=== PATIENT | female | born 1985 | race Caucasian/White ===

== ENCOUNTER → 2023-11-29 | Outpatient (CLI) | payer BC, SELFPAY ==
--- OUTSIDE RECORDS SUMMARY | 2023-11-29 17:45 | XMS RPT_ITS | CCD ---
Author Name Unknown Address [address] [place] [address] Organization [facility] Care Team Providers Care Collar Stitcher Name Role Phone YINA WRIGHT, DR HUBERT Radford Primary Care Physician [phone] YINA WRIGHT, DR HUBERT Radford Attending Amy Valles MD, DR HUBERT Radford Primary Care Unavailab Finn WRIGHT, DR BROOK EDUARDO Attending Unaerin BRAN MD, DR HUBERT Radford Primary Care Unavailab Finn WRIGHT, DR BROOK EDUARDO Attending Paige BRAN MD, DR HUBERT Radford Primary Care Unavailab Finn WRIGHT, DR BROOK EDUARDO Attending Unaerin BRAN MD, DR HUBERT Radford Primary Care Unavailab Hai WRIGHT, DR HUBERT Radford Attending Amy aVlles MD, DR HUBERT Radford Primary Care Unavailab Hai WRIGHT, DR HUBERT Radford Attending Altagraciaab velma BRAN MD, DR HUBERT Radford Primary Care Unavailab Finn WRIGHT, DR BROOK EDUARDO Attending Unaerin BRAN MD, DR HUBERT Radfodr Primary Care Unavailab Finn WRIGHT, DR BROOK EDUARDO Attending Unaerin BRAN MD, DR HUBERT Radford Primary Care Unavailab Kahlil WRIGHT, KANA PHAM MD, PRISCILLA Garcia Consulting Sarahi ENGLISH MD, DR BROOK EDUARDO Attending Paige BRAN MD, DR HUBERT Radford Primary Care Unavailab Finn WRIGHT, DR BROOK EDUARDO Attending Unaerin BRAN MD, DR HUBERT Radford Primary Care Unavailab Hai WRIGHT, DR HUBERT Radford Attending Amy Valles MD, DR HUBERT Radford Primary Care Unavailab Hai WRIGHT, DR HUBERT Radford Attending Unavailab velma BRAN MD, DR HUBERT Radford Primary Care Unavailab le Medications Current Medications Medication Drug Class(es) Dates Sig (Normalized) Sig (Original) acetaminophen 325 mg / HYDROcodone bitartrate 5 mg oral tablet (4 sources) [facility]io[facility] Agonist Start: 04-25-2023 End: 04-28-2023 take 1 tablet by mouth every four hours as needed for pain Livermore 325- 5 mg oral tablet Dose = 1 tab(s), Oral, q4h, PRN for pain, X 3 day(s), # 20 tab(s), 0 Refill(s), Pharmacy: [facility], Acute post-operative pain, 162.6, cm, 04/25/23 6:36:00 EDT, Height, 109.1 Start Date: 04/25/23 Stop Date: 04/28/23 Status: Ordered Completed/Discontinued Medications Medication Drug Class(es) Dates Sig (Normalized) Sig (Original) ALPRAZolam 0.5 mg oral tablet (4 sources) Benzodiazepine Start: 06-18-2019 End: 07-18-2019 Xanax 0.5 mg oral tablet Dose : 0.5 mg = 1 tab(s), Oral, BID, # 60 tab(s), 0 Refill(s), Anxiety Start Date: 06/18/19 Stop Date: 07/18/19 Status: Ordered Problems Problem Classification Problem Date Documented Date Episodic/Chronic Abdominal pain (4 sources) Epigastric pain 08-17-2022 Episodic Anxiety disorders (2 sources) Anxiety disorder, unspecified; Translations: [Anxiety disorder, unspecified] Onset: 08-23-2023 Chronic Asthma (2 sources) Unspecified asthma, uncomplicated; Translations: [Unspecified asthma, uncomplicated] Onset: 08-23-2023 Chronic Biliary tract disease (3 sources) Biliary calculus 02-15-2023 Episodic Other endocrine disorders (4 sources) Polycystic ovary syndrome 08-17-2022 Chronic Other nervous system disorders (1 source) Postoperative pain ; Translations: [Other acute postprocedural pain] Onset: 04-25-2023 Episodic Other nutritional; endocrine; and metabolic disorders (4 sources) Body mass index 40+ - severely obese 02-12-2021 Chronic Other nutritional; endocrine; and metabolic disorders (4 sources) Morbid obesity 02-12-2021 Chronic Other nutritional; endocrine; and metabolic disorders (2 sources) Body mass index (BMI) 40.0-44.9, adult; Translations: [Body mass index [BMI] 40.0-44.9, adult] Onset: 08-23-2023 Chronic Other nutritional; endocrine; and metabolic disorders (2 sources) Morbid (severe) obesity due to excess calories; Translations: [Morbid (severe) obesity due to excess calories] Onset: 08-23-2023 Chronic Other nutritional; endocrine; and metabolic disorders (4 sources) Weight gain 08-17-2022 Episodic Other screening for suspected conditions (not mental disorders or infectious disease) (5 sources) Blood chemistry abnormal; Translations: [Other specified abnormal findings of blood chemistry] Onset: 08-23-2023 Episodic Other skin disorders (4 sources) Loss of hair 08-17-2022 Episodic Residual codes; unclassified (4 sources) Chronic back pain 07-18-2019 Episodic Screening and history of mental health and substance abuse codes (4 sources) H/O: depression 02-12-2021 Episodic Thyroid disorders (6 sources) Hypothyroidism; Translations: [Hypothyroidism, unspecified] Onset: 10-26-2022 07-18-2019 Chronic Unclassified (12 sources) Patient encounter status 07-18-2019 Results Test Name Value Interpretation Reference Range Facil ity Vital Signs Date Time Vital Sign Value Performing Clinician Faci lity 04-25-2023 11:57-0400 Body temperature 96.8 [degF] DR BROOK ENGLISH MD [facility] 04-25-2023 11:57-0400 Diastolic Blood Pressure Non-Invasive [address] BROOK ENGLISH MD [facility] 04-25-2023 11:57-0400 Heart rate 85 /min DR BROOK ENGLISH MD [facility] 04-25-2023 11:57-0400 Respiratory rate 16 /min DR BROOK ENGLISH MD [facility] 04-25-2023 11:57-0400 Systolic Blood Pressure Non-Invasive [address] BROOK ENGLISH MD [facility] 04-25-2023 10:57-0400 Body temperature 97.16 [degF] DR BROOK ENGLISH MD [facility] 04-25-2023 10:57-0400 Diastolic Blood Pressure Non-Invasive [address] BROOK ENGLISH MD [facility] 04-25-2023 10:57-0400 Heart rate 76 /min DR BROOK ENGLISH MD [address] [place] [address] 04-25-2023 10:57-0400 Respiratory rate 16 /min DR BROOK ENGLISH MD [address] 04-25-2023 10:57-0400 Systolic Blood Pressure Non-Invasive [address] BROOK ENGLISH MD [address] 04-25-2023 10:09-0400 Body temperature 96.98 [degF] DR BROOK ENGLISH MD [address] 04-25-2023 10:09-0400 Diastolic Blood Pressure Non-Invasive [address] BROOK ENGLISH MD [address] [place] [address] 04-25-2023 10:09-0400 Heart rate 74 /min DR BROOK ENGLISH MD [address] 04-25-2023 10:09-0400 Respiratory rate 16 /min DR BROOK ENGLISH MD [address] [place] [address] 04-25-2023 10:09-0400 Systolic Blood Pressure Non-Invasive [address] BROOK ENGLISH MD [address] [place] [address] 04-25-2023 09:46-0400 Body temperature 97.16 [degF] DR BROOK ENGLISH MD [address] [place] [address] 04-25-2023 09:46-0400 Heart rate 92 /min DR BROOK ENGLISH MD [facility] 04-25-2023 09:46-0400 Mean blood pressure 78 mm[Hg] DR BROOK ENGLISH MD [address] [place] [address] 04-25-2023 09:31-0400 Heart rate 88 /min DR BROOK ENGLISH MD [address] [place] [address] 04-25-2023 09:31-0400 Mean blood pressure 81 mm[Hg] DR BROOK ENGLISH MD [address] [place] [address] 04-25-2023 09:16-0400 Heart rate 86 /min DR BROOK ENGLISH MD [address] [place] [address] 04-25-2023 09:16-0400 Mean blood pressure 79 mm[Hg] DR BROOK ENGLISH MD [address] [place] [address] 04-25-2023 09:15-0400 Respiratory Rate - Anes 0 br/min DR BROOK ENGLISH MD [address] [place] [address] 04-25-2023 09:10-0400 Respiratory Rate - Anes 0 br/min DR BROOK ENGLISH MD [address] [place] [address] 04-25-2023 09:05-0400 Respiratory Rate - Anes 17 br/min DR BROOK ENGLISH MD [address] 04-25-2023 08:55-0400 Body temperature 96.37 [degF] DR BROOK ENGLISH MD [address] [place] [address] 04-25-2023 08:50-0400 Body temperature 96.42 [degF] DR BROOK ENGLISH MD [address] [place] [address] 04-25-2023 08:45-0400 Body temperature 96.6 [degF] DR BROOK ENGLISH MD [address] [place] [address] 04-25-2023 06:10-0400 Body height 162.[address] BROOK ENGLISH MD [address] 04-25-2023 06:10-0400 Body weight 109.[address] BROOK ENGLISH MD [facility] Encounters Encounter Date Encounter Type Care Provider Facility Start: 08-23-2023 End: 08-28-[address] HUBERT BRAN MD Facility:A Start: 08-23-2023 End: 08-28-2023 Encounter for general adult medical examination without abnormal findings DR HUBERT BRAN MD Facility:[facility] Start: 05-15-2023 End: 05-16-[address] BROOK ENGLISH MD Facility:A Start: 05-15-2023 End: 05-15-[address] BROOK ENGLISH MD [facility] Start: 04-25-2023 End: 04-25-[address] BROOK ENGLISH MD Facility:[facility] Start: 04-25-2023 End: 04-25-[address] BROOK ENGLISH MD [facility] Start: 04-14-2023 End: 04-15-[address] BROOK ENGLISH MD Facility:A Start: 04-13-2023 End: 04-14-[address] BROOK ENGLISH MD Facility:[facility] Start: 04-12-2023 End: 04-13-[address] BROOK ENGLISH MD Facility:[facility] Start: 04-10-2023 End: 04-11-[address] HUBERT BRAN MD Facility:[facility] Start: 04-10-2023 End: 04-10-[address] HUBERT BRAN MD [facility] Start: 02-21-[address] BROOK ENGLISH MD Facility:[facility] Start: 02-17-[address] BROOK ENGLISH MD Facility:[facility] Start: 02-01-2023 End: 02-02-[address] HUBERT BRAN MD Facility:[facility] Start: 02-01-2023 End: 02-01-[address] HUBERT BRAN MD [facility] Start: 12-23-2022 End: 12-28-[address] HUBERT BRAN MD Facility:[facility] Start: 10-26-2022 End: 10-31-[address] HUBERT BRAN MD Facility:[facility] Procedures Date Procedure Procedure Detail Performing Clinician Start: 04-25-[address] JUANPABLO ENGLISH MD Payers Date Payer Category Payer Unknown [id number] 1985 Unknown [id number] 2.16.8 [id number] 1986 Unknown [id number] 2.16.8 [id number] 1986 Unknown [id number] 2.16.8 [id number] 1986 Unknown [id number] 2.16.8 [id number]. 1986 Unknown [id number] 2.16.8 [id number] 1986 Unknown [id number] 2.16.8 [id number]. 1986 Unknown [id number] 2.16.8 [id number] 1986 Unknown [id number] 2.16.8 [id number]. 1986 Unknown [id number] 2.16.8 [id number] 1986 Unknown [id number] 2.16.8 [id number]. 1986 Unknown [id number] 2.16.8 [id number] 1986 Unknown [id number] 2.16.8 [id number] Social History Date Type Detail Facility Start: 07-18-2019 Tobacco smoking status Never s moked tobacco (finding) [facility] Sex Assigned At Sex [facility] Start: 04-14-2023 Tobacco smoking status Ex-smoker (fi nding) [facility] Functional Status Date Assessment Result Facility 04-25-2023 [facility] Functional Status ice on [facility] 04-25-2023 Functional Status NPO Status Maintained A [facility] Mental Status Date Assessment Result Facility 04-25-2023 Mental Status Oriented x 4 [facility] 04-25-2023 Mental Status [facility] Clinical Notes 12-28-2022 to 04-25-2023 Laboratory Note Date & Type Note Facility 04-25-2023 Note ORIGINAL HISTORY: Cholecystitis COMPARISON: No FLUOROSCOPY TIME: 3 seconds FLUOROSCOPY IMAGES: 2 FINDINGS: There is injection of the cystic duct. IMPRESSION: Fluoroscopy provided to the surgery service. Interpreted by: Adrian Winters MD Preliminary Report By: Adrian Winters MD Electronically signed By Adrian Winters MD Dictated Date: 04/25/2023 12:48:01 PM Prelim Date: 04/25/2023 12:48:56 PM Sign Date: 04/25/2023 12:48:56 PM Ordering Provider: BROOK ENGLISH [facility] 04-25-2023 Hospital Discharg e instructions Patient Education 04/25/2023 10:27:46 8- Post Op General Surgery (10/2020) (CUSTOM) What to Do After Your General Surgery This sheet will give you general information on what to do when you are home after surgery. However, you should always follow any specific instructions given to you by your surgeon. Pain Medication Please follow the directions on the label of your medication and use your discharge medication list provided by the hospital. Do not take pain medication on an empty stomach. This may cause a stomachache. Constipation is common while taking oral pain medication after surgery. Use a stool softener (Colace) or gentle laxative (milk of magnesia) if needed. As soon as your pain allows, use less of any narcotic pain medication. You may take iwij-ymr-zsaahlo pain medication if you no longer need your prescribed pain medication. Kggc-xup-jsbfaeu pain medications are Tylenol or Advil/Motrin (ibuprofen). Do not take Tylenol if you are still taking Livermore or Percocet. They are the same type of medication, and too much acetaminophen can hurt your liver. Activity It is OK to use stairs. Do not lift more than 15 pounds. After surgery, you may feel tired. Rest is important for healing. Slowly increase your activity level by walking and doing normal activities as you feel comfortable. Do not drive while taking narcotic pain medication. They should be out of your system for [address]. Diet Eating smaller meals instead of three large meals is good. This may help with your appetite and nutrition. Good nutrition will help you heal. Follow diet instructions that you were taught after surgery. Infection Prevention Washing your hands is one of the best ways to prevent infection. Always wash your hands before and after touching your incision or bandage. Hands carry germs that can cause infections. Try not to touch your incision. Keep the Incision Clean Wear clean, loose-fitting clothes to prevent clothes from rubbing on the incision. Put clean sheets on your bed when you get home. Do not let other people or animals touch the incision. Showering You may start to shower 48 hours after your surgery. Use a clean washcloth and towel on your incision before you use it on any other area of your body. Adjust the shower spray to gentle and use warm water. Gently wash over your incision using antibacterial soap and water and pat it dry. Do not rub the incision. Do not soak or submerge in the bathtub or hot tub until your surgeon says it is OK. Wound Care If you have a clear, see-through bandage over your incision(s), you may shower with it in place. The bandage is waterproof. oIt is normal to see a small amount of reddish fluid under the clear bandage. You may remove your bandage after 48 hours. If you are in the hospital longer than 48 hours, it is OK to remove your bandage when you get home. If you have thin white tape strips (Steri-Strips) over your incision, keep them dry. Do not remove them unless they begin curling up at the sides and are almost falling off. [place] or sutures are generally removed within seven to 14 days at your follow-up appointment. Drain Care If you have a drain, empty it two to three times per day or if it gets half full. Write down the time it was emptied and amount of fluid on a piece of paper. Bring your paper with times and fluid amounts to your follow-up appointment to show your surgeon. Call Your Doctor If: You have a fever of 101 degrees or higher. It is not uncommon to have a low-grade fever after surgery. You have new redness or fluid around the incision that smells bad or looks like pus. Your skin is very painful, red, warm and/or swollen around the incision. You have a lot of bleeding (push with pressure on the area if this happens). You have bad stomach pain or you start throwing up. If you are unable to reach your surgeon, go to the hospital. Follow Up If a follow-up appointment has not been made, please call your surgeon s office. Most appointments are 10 14 days after surgery. If you have any problems or concerns before then, call the surgeon s office. Follow Up Care 04/13/2023 14:07:58 With:BROOK ENGLISH JR, MD, Surgery Address: [place] [address]- When:Within 3 Week(s) Comments:Call office, , to make appointment. [facility] 04-25-2023 Summary of episod e note Discharge Instructions Thank you for allowing [facility] to assist you with your healthcare needs. The following is important discharge information regarding your hospital visit. Your Care Team HUBERT BRAN MD Your Diagnosis Acute post-operative pain What to do next Scheduled Follow-Up Appointments [facility] 03:00 PM EDT HUBERT BRAN MD [facility] Follow Up Appointments Follow Up with BROOK ENGLISH JR, MD, Surgery When In 3 weeks Why: Call office, , to make appointment. Where: [address] [place] [address]- The Following Activity and Diet Have Been Ordered for You Discharge Activity - Ordered -- Lifting Restricted less than 10 pounds, Do not drive for 3 to 5 days or while taking narcotics. May shower starting tomorrow., 04/25/23 10:21:00 EDT Discharge Diet - Ordered -- Type of Diet: Regular Diet, No changes were made to your diet during your hospital stay. Please resume your pre hospitalization diet on discharge., 04/25/23 10:21:00 EDT The Following Equipment Has Been Ordered for You Discharge Home Equipment Discharge Wound Care - Ordered -- Dressing Type: Dry sterile drsg, Remove umbilical dressing tomorrow. May shower after dressing removed. Leave steri strips on for one week., 04/25/23 10:21:00 EDT Allergies NKA Medications Please ask your primary doctor or pharmacist before taking any other medication not listed, including over the counter drugs, herbal medications, vitamins and or supplements as they may interact with your home medications. What How Much When Why Instructions Last Dose Changed acetaminophen-hydrocodone (acetaminophen-hydrocodone 325 mg-5 mg oral tablet) 1 tab(s) by mouth Every 4 hours as needed for for pain Pain Duration: 7 Days Changed acetaminophen-hydrocodone (Livermore 325- 5 mg oral tablet) 1 tab(s) by mouth Every 4 hours as needed for for pain Acute post-operative pain Duration: 3 Days Pickup at [facility] Unchanged ALPRAZolam (Xanax 0.5 mg oral tablet) 1 tab(s) by mouth Two (2) times a day Anxiety Duration: 30 Days Unchanged herbal/ nutritional product (turmeric 500 mg oral capsule) 1 cap by mouth Once a day (in the morning) Unchanged levothyroxine (levothyroxine 100 mcg (0.1 mg) oral tablet) 1 tab(s) by mouth Once a day (in the morning) Unchanged Misc Medication 1 cap by mouth Once a day (in the morning) organic Iron Plus 22mg Vit b 12 200mcg folate 400mcg vitamin c 45mg Unchanged Misc Medication 1 cap by mouth Once a day (in the morning) Black seed oil Unchanged Misc Medication 2 cap by mouth Once a day (in the morning) [facility] [employer] [facility] Information [facility] [address] [place] [address] [phone] What How Much When Comments Stop Taking mupirocin topical (mupirocin 2% topical ointment) 1 application Topical Two (2) times a day Bilateral intranasal application twice daily x 5 days pre-surgery &/ or as many days pre-surgery as possible. Please take this list to your next doctor s visit. Bring all medications you take, including over the counter medications, herbals and other supplements with you to your doctor s visit. Patients and families are reminded to discard old lists and to update any records with all medication providers or retail pharmacies. Education Materials What to Do After Your General Surgery This sheet will give you general information on what to do when you are home after surgery. However, you should always follow any specific instructions given to you by your surgeon. Pain Medication Please follow the directions on the label of your medication and use your discharge medication list provided by the hospital. Do not take pain medication on an empty stomach. This may cause a stomachache. Constipation is common while taking oral pain medication after surgery. Use a stool softener (Colace) or gentle laxative (milk of magnesia) if needed. As soon as your pain allows, use less of any narcotic pain medication. You may take xugt-yjg-cpihyql pain medication if you no longer need your prescribed pain medication. Niji-hnu-vpreagm pain medications are Tylenol or Advil/Motrin (ibuprofen). Do not take Tylenol if you are still taking Livermore or Percocet. They are the same type of medication, and too much acetaminophen can hurt your liver. Activity It is OK to use stairs. Do not lift more than 15 pounds. After surgery, you may feel tired. Rest is important for healing. Slowly increase your activity level by walking and doing normal activities as you feel comfortable. Do not drive while taking narcotic pain medication. They should be out of your system for 24 [address]. Diet Eating smaller meals instead of three large meals is good. This may help with your appetite and nutrition. Good nutrition will help you heal. Follow diet instructions that you were taught after surgery. Infection Prevention Washing your hands is one of the best ways to prevent infection. Always wash your hands before and after touching your incision or bandage. Hands carry germs that can cause infections. Try not to touch your incision. Keep the Incision Clean Wear clean, loose-fitting clothes to prevent clothes from rubbing on the incision. Put clean sheets on your bed when you get home. Do not let other people or animals touch the incision. Showering You may start to shower 48 hours after your surgery. Use a clean washcloth and towel on your incision before you use it on any other area of your body. Adjust the shower spray to gentle and use warm water. Gently wash over your incision using antibacterial soap and water and pat it dry. Do not rub the incision. Do not soak or submerge in the bathtub or hot tub until your surgeon says it is OK. Wound Care If you have a clear, see-through bandage over your incision(s), you may shower with it in place. The bandage is waterproof. o It is normal to see a small amount of reddish fluid under the clear bandage. You may remove your bandage after 48 hours. If you are in the hospital longer than 48 hours, it is OK to remove your bandage when you get home. If you have thin white tape strips (Steri-Strips) over your incision, keep them dry. Do not remove them unless they begin curling up at the sides and are almost falling off. Prabha or sutures are generally removed within seven to 14 days at your follow-up appointment. Drain Care If you have a drain, empty it two to three times per day or if it gets half full. Write down the time it was emptied and amount of fluid on a piece of paper. Bring your paper with times and fluid amounts to your follow-up appointment to show your surgeon. Call Your Doctor If: You have a fever of 101 degrees or higher. It is not uncommon to have a low-grade fever after surgery. You have new redness or fluid around the incision that smells bad or looks like pus. Your skin is very painful, red, warm and/or swollen around the incision. You have a lot of bleeding (push with pressure on the area if this happens). You have bad stomach pain or you start throwing up. If you are unable to reach your surgeon, go to the hospital. Follow Up If a follow-up appointment has not been made, please call your surgeon s office. Most appointments are 10 14 days after surgery. If you have any problems or concerns before then, call the surgeon s office. Additional Information VACCINATE! IT SAVES LIVES! Members of the community who have not yet received the COVID-19 vaccine and would like to receive it can visit one of [facility] vaccine clinics. There are many vaccine clinic locations within the [facility]. For locations and available times, please visit [email or web address] hio.[email or web address] It is important to note that some COVID mobile vaccine clinics are held outdoors and may be canceled in rainy or stormy conditions. To learn more about pediatric vaccinations (ages 5-11), we invite you to visit the [employer] webpage. [email or web address]/p [email or web address]-[email or web address]-[email or web address]-Freq [email or web address] To learn more about the COVID-19 vaccine, we invite you to visit the CDC website for a list of frequently asked questions.https://www.cdc.gov/co ronavirus/2019-ncov/vaccines/faq .html [facility] Patient Portal Access Instructions: Stay connected with your healthcare team and access your personal medical information anytime with the [facility] Patient Portal. Please follow the directions below to create your [facility] account: 1.Access the email account you provided upon registration to the hospital/physician office.2.Look for an invitation email from [facility].3.Open the email and access the invitation link: Accept Invitation to [facility].4.Fill in the required reed to create your account. To access your account, visit [employer]. Click the blue button labeled Access Patient Portal and then log in with the username and password that you created in the steps above. You will be able to view your test results, lab results, a summary of your visits, upcoming appointments and more. There is also a convenient messaging option where you can send secure messages to your provider. In addition, you will have the ability to download any documents or summaries to your computer and/or send the information securely to a physician. Remember that your healthcare information is confidential, so carefully consider who you will allow to register on the [facility] Patient Portal for access to your information. You can also access the [facility] Patient Portal on the [facility] sarah. Simply click on Patient Portal and then log into your account. If you would like to receive a full copy of your medical records, please contact the [facility] Medical Records Department by calling [phone], Monday through Monday between 8 a.m. and 4:30 p.m. HOW TO SAFELY DISPOSE OF PRESCRIPTION MEDICATIONS Please use one of the following methods to safely dispose of your unused medications. 1.Use a drug disposal kit: the drug disposal pouch allows you to safely discard your old and unused drugs. Ask your nurse to give you one when you are discharged.2.Visit a local take-back location: Many local pharmacies and police departments have programs that collect old and unwanted prescription drugs. Call your local pharmacy or go to http://true[x] Media/3B9Zy2o to find one close to you.3.Make use of household items: Use cat litter or old coffee grounds to dispose medications if other options are not available. Mix your drugs with these household products, seal them in an airtight container and throw it into the garbage. Call [facility]: [phone] to be sure your drugs can be disposed of in this way. Some medicines may require a different approach.4.Never flush your medications down the toilet. IF YOU HAVE BEEN PRESCRIBED AN OPIOID FOR PAIN If you have been prescribed an opioid (such as hydrocodone, oxycodone or morphine), it is critical to understand the possible side effects and risks of opioid pain medications. Even when taken as directed, opioids can have several side effects including: Tolerance, meaning you might need to take more of a medication for the same pain relief. Nausea, vomiting and/or constipation. Sleepiness, dizziness, dry mouth, confusion, depression or itching. Physical dependence, meaning you have withdrawal symptoms when a medication is stopped, can develop within a few days. KNOW YOUR RESPONSIBILITIES It is important to know exactly how much and how often to take the opioid pain medications you are prescribed. Never take opioids in higher amounts or more often than prescribed. Do not combine opioids with alcohol or other drugs that cause drowsiness, such as benzodiazepines, also known as benzos, including diazepam and alprazolam, muscle relaxants or sleep aids. Never sell or share prescription opioids. This is illegal. Store opioids in a secure place and out of reach of others (including children, family, friends and visitors). The last page of this document has been signed and retained as a CHART COPY. Signatures Patient Education Materials 8- Post Op General Surgery (10/2020) (CUSTOM) Medication Leaflets My discharge plan and instructions have been reviewed and explained to me and I,DICK SWENSON understand my current condition and have read and understand these discharge instructions. I have received a written copy of the plan/instructions. If I have questions, I am aware that I should contact my doctor. Patient/[employer] Worker Signature: Date/Time: Relationship to Patient: Witness Name/Signature: Date/Time: [facility] 04-25-2023 Anesthesiology Consult note Patient: DICK SWENSON Age: 37 years Sex: Female : 1985 Associated Diagnoses: None Author: PRISCILLA PHAM MD Postoperative Information Post Operative Info: Post op day: Post Anesthesia Care Unit. Patient location: PACU. Assessment Postanesthesia assessment Vitals: Vital signs from flowsheet : Vital Signs 04/25/2023 9:46 EDT Temperature Temporal Artery 36.2 DegC Heart Rate Monitored 92 bpm Respiratory Rate 16 br/min Systolic Blood Pressure Non-Invasive 104 mmHg Diastolic Blood Pressure Non-Invasive 64 mmHg Mean Arterial Pressure (NBP) 78 mmHg 04/25/2023 9:31 EDT Heart Rate Monitored 88 bpm Respiratory Rate 18 br/min Systolic Blood Pressure Non-Invasive 116 mmHg Diastolic Blood Pressure Non-Invasive 63 mmHg Mean Arterial Pressure (NBP) 81 mmHg 04/25/2023 9:16 EDT Temperature Temporal Artery 36.2 DegC Heart Rate Monitored 86 bpm Respiratory Rate 18 br/min Systolic Blood Pressure Non-Invasive 115 mmHg Diastolic Blood Pressure Non-Invasive 62 mmHg Mean Arterial Pressure (NBP) 79 mmHg 04/25/2023 9:15 EDT Respiratory Rate - Anes 0 br/min br/min 04/25/2023 9:10 EDT Heart Rate Monitored 85 bpm bpm Respiratory Rate - Anes 0 br/min br/min 04/25/2023 9:09 EDT Systolic Blood Pressure Non-Invasive 103 mmHg mmHg Diastolic Blood Pressure Non-Invasive 59 mmHg mmHg 04/25/2023 9:06 EDT Systolic Blood Pressure Non-Invasive 93 mmHg mmHg Diastolic Blood Pressure Non-Invasive 51 mmHg mmHg 04/25/2023 9:05 EDT Heart Rate Monitored 71 bpm bpm Respiratory Rate - Anes 17 br/min br/min 04/25/2023 9:03 EDT Systolic Blood Pressure Non-Invasive 99 mmHg mmHg Diastolic Blood Pressure Non-Invasive 67 mmHg mmHg 04/25/2023 9:00 EDT Heart Rate Monitored 79 bpm bpm Respiratory Rate - Anes 11 br/min br/min Systolic Blood Pressure Non-Invasive 106 mmHg mmHg Diastolic Blood Pressure Non-Invasive 56 mmHg mmHg 04/25/2023 8:57 EDT Systolic Blood Pressure Non-Invasive 108 mmHg mmHg Diastolic Blood Pressure Non-Invasive 62 mmHg mmHg 04/25/2023 8:55 EDT Temperature (Route Not Specified) 35.76 DegC DegC Heart Rate Monitored 85 bpm bpm Respiratory Rate - Anes 10 br/min br/min 04/25/2023 8:54 EDT Systolic Blood Pressure Non-Invasive 108 mmHg mmHg Diastolic Blood Pressure Non-Invasive 65 mmHg mmHg 04/25/2023 8:51 EDT Systolic Blood Pressure Non-Invasive 109 mmHg mmHg Diastolic Blood Pressure Non-Invasive 66 mmHg mmHg 04/25/2023 8:50 EDT Temperature (Route Not Specified) 35.79 DegC DegC Heart Rate Monitored 88 bpm bpm Respiratory Rate - Anes 14 br/min br/min 04/25/2023 8:48 EDT Systolic Blood Pressure Non-Invasive 104 mmHg mmHg Diastolic Blood Pressure Non-Invasive 64 mmHg mmHg 04/25/2023 8:45 EDT Temperature (Route Not Specified) 35.89 DegC DegC Heart Rate Monitored 92 bpm bpm Respiratory Rate - Anes 14 br/min br/min Systolic Blood Pressure Non-Invasive 100 mmHg mmHg Diastolic Blood Pressure Non-Invasive 71 mmHg mmHg 04/25/2023 8:42 EDT Systolic Blood Pressure Non-Invasive 105 mmHg mmHg Diastolic Blood Pressure Non-Invasive 70 mmHg mmHg 04/25/2023 8:40 EDT Temperature (Route Not Specified) 35.91 DegC DegC Heart Rate Monitored 96 bpm bpm Respiratory Rate - Anes 13 br/min br/min 04/25/2023 8:39 EDT Systolic Blood Pressure Non-Invasive 107 mmHg mmHg Diastolic Blood Pressure Non-Invasive 73 mmHg mmHg 04/25/2023 8:36 EDT Systolic Blood Pressure Non-Invasive 104 mmHg mmHg Diastolic Blood Pressure Non-Invasive 69 mmHg mmHg 04/25/2023 8:35 EDT Temperature (Route Not Specified) 35.93 DegC DegC Heart Rate Monitored 93 bpm bpm Respiratory Rate - Anes 12 br/min br/min 04/25/2023 8:33 EDT Systolic Blood Pressure Non-Invasive 97 mmHg mmHg Diastolic Blood Pressure Non-Invasive 64 mmHg mmHg 04/25/2023 8:30 EDT Temperature (Route Not Specified) 35.9 DegC DegC Heart Rate Monitored 95 bpm bpm Respiratory Rate - Anes 12 br/min br/min Systolic Blood Pressure Non-Invasive 104 mmHg mmHg Diastolic Blood Pressure Non-Invasive 69 mmHg mmHg 04/25/2023 8:27 EDT Systolic Blood Pressure Non-Invasive 105 mmHg mmHg Diastolic Blood Pressure Non-Invasive 74 mmHg mmHg 04/25/2023 8:25 EDT Temperature (Route Not Specified) 35.82 DegC DegC Heart Rate Monitored 95 bpm bpm Respiratory Rate - Anes 12 br/min br/min 04/25/2023 8:24 EDT Systolic Blood Pressure Non-Invasive 111 mmHg mmHg Diastolic Blood Pressure Non-Invasive 73 mmHg mmHg 04/25/2023 8:21 EDT Systolic Blood Pressure Non-Invasive 104 mmHg mmHg Diastolic Blood Pressure Non-Invasive 78 mmHg mmHg 04/25/2023 8:20 EDT Temperature (Route Not Specified) 35.71 DegC DegC Heart Rate Monitored 91 bpm bpm Respiratory Rate - Anes 10 br/min br/min 04/25/2023 8:19 EDT Systolic Blood Pressure Non-Invasive 81 mmHg mmHg Diastolic Blood Pressure Non-Invasive 60 mmHg mmHg 04/25/2023 8:17 EDT Systolic Blood Pressure Non-Invasive 74 mmHg mmHg Diastolic Blood Pressure Non-Invasive 60 mmHg mmHg 04/25/2023 8:15 EDT Temperature (Route Not Specified) 35.67 DegC DegC Heart Rate Monitored 83 bpm bpm Respiratory Rate - Anes 10 br/min br/min Systolic Blood Pressure Non-Invasive 85 mmHg mmHg Diastolic Blood Pressure Non-Invasive 61 mmHg mmHg 04/25/2023 8:12 EDT Systolic Blood Pressure Non-Invasive 114 mmHg mmHg Diastolic Blood Pressure Non-Invasive 72 mmHg mmHg 04/25/2023 8:10 EDT Temperature (Route Not Specified) 35.64 DegC DegC Heart Rate Monitored 90 bpm bpm Respiratory Rate - Anes 10 br/min br/min 04/25/2023 8:09 EDT Systolic Blood Pressure Non-Invasive 108 mmHg mmHg Diastolic Blood Pressure Non-Invasive 74 mmHg mmHg 04/25/2023 8:06 EDT Systolic Blood Pressure Non-Invasive 98 mmHg mmHg Diastolic Blood Pressure Non-Invasive 47 mmHg mmHg 04/25/2023 8:05 EDT Temperature (Route Not Specified) 35.63 DegC DegC Heart Rate Monitored 89 bpm bpm Respiratory Rate - Anes 10 br/min br/min 04/25/2023 8:03 EDT Systolic Blood Pressure Non-Invasive 95 mmHg mmHg Diastolic Blood Pressure Non-Invasive 51 mmHg mmHg 04/25/2023 8:00 EDT Temperature (Route Not Specified) 35.71 DegC DegC Heart Rate Monitored 88 bpm bpm Respiratory Rate - Anes 10 br/min br/min Systolic Blood Pressure Non-Invasive 92 mmHg mmHg Diastolic Blood Pressure Non-Invasive 51 mmHg mmHg 04/25/2023 7:57 EDT Systolic Blood Pressure Non-Invasive 94 mmHg mmHg Diastolic Blood Pressure Non-Invasive 51 mmHg mmHg 04/25/2023 7:55 EDT Temperature (Route Not Specified) 35.85 DegC DegC Heart Rate Monitored 86 bpm bpm Respiratory Rate - Anes 12 br/min br/min 04/25/2023 7:54 EDT Systolic Blood Pressure Non-Invasive 96 mmHg mmHg Diastolic Blood Pressure Non-Invasive 52 mmHg mmHg 04/25/2023 7:51 EDT Systolic Blood Pressure Non-Invasive 97 mmHg mmHg Diastolic Blood Pressure Non-Invasive 54 mmHg mmHg 04/25/2023 7:50 EDT Heart Rate Monitored 92 bpm bpm Respiratory Rate - Anes 12 br/min br/min 04/25/2023 7:48 EDT Systolic Blood Pressure Non-Invasive 106 mmHg mmHg Diastolic Blood Pressure Non-Invasive 56 mmHg mmHg 04/25/2023 7:45 EDT Heart Rate Monitored 80 bpm bpm Respiratory Rate - Anes 9 br/min br/min Systolic Blood Pressure Non-Invasive 103 mmHg mmHg Diastolic Blood Pressure Non-Invasive 57 mmHg mmHg 04/25/2023 7:42 EDT Systolic Blood Pressure Non-Invasive 105 mmHg mmHg Diastolic Blood Pressure Non-Invasive 81 mmHg mmHg 04/25/2023 7:40 EDT Heart Rate Monitored 76 bpm bpm Respiratory Rate - Anes 0 br/min br/min 04/25/2023 7:39 EDT Systolic Blood Pressure Non-Invasive 111 mmHg mmHg Diastolic Blood Pressure Non-Invasive 70 mmHg mmHg 04/25/2023 6:10 EDT Temperature Temporal Artery 36.1 DegC Peripheral Pulse Rate 78 bpm Respiratory Rate 16 br/min Systolic Blood Pressure Non-Invasive 113 mmHg Diastolic Blood Pressure Non-Invasive 71 mmHg . Mental status: at preoperative baseline. Respiratory function: respirations are non-labored, Stable. Respiratory support: none. CV function: Stable. Cardiovascular support: none. Pain: Satisfactory. Nausea status: Satisfactory. Postoperative hydration status: within normal limits. Notes: Patient is sufficiently recovered from anesthesia to participate in the evaluation. No follow-up care needed. No complications post-anesthesia.. Digitally Signed by PRISCILLA PHAM MD on 04/25/2023 09:54 AM [facility] 04-25-2023 Note ORIGINAL HISTORY: Cholecystitis COMPARISON: No FLUOROSCOPY TIME: 3 seconds FLUOROSCOPY IMAGES: 2 FINDINGS: There is injection of the cystic duct. IMPRESSION: Fluoroscopy provided to the surgery service. Interpreted by: Adrian Winters MD Preliminary Report By: Adrian Winters MD Electronically signed By Adrian Winters MD Dictated Date: 04/25/2023 12:48:01 PM Prelim Date: 04/25/2023 12:48:56 PM Sign Date: 04/25/2023 12:48:56 PM [facility] 04-25-2023 Anesthesiology Consult note Patient: DICK SWENSON Age: 37 years Sex: Female : 1985 Associated Diagnoses: None Author: KANA LINDSAY MD Preoperative Information NPO > 8 hours Anesthesia history Patient's history: negative. Health Status Allergies: Allergic Reactions (Selected) NKA, Allergies (1) ActiveReaction NKANone Documented Current medications: (Selected) Inpatient Medications Ordered LR 1,000 mL: Start: 04/25/23 5:00:00 EDT, 18 hour(s), Stop date 04/25/23 22:59:00 EDT, Rate: 20 mL/hr, 04/25/23 5:00:00 EDT lidocaine 1% preservative-free injectable solution: Start: 04/25/23 5:00:00 EDT, Dose = 2.5 mg, = 0.25 mL, Intradermal, prep pharm, 18 hour(s), Stop: 04/25/23 22:59:00 EDT, 0, 04/25/23 5:00:00 EDT Prescriptions Prescribed Xanax 0.5 mg oral tablet: Dose : 0.5 mg = 1 tab(s), Oral, BID, # 60 tab(s), 0 Refill(s), Anxiety acetaminophen-hydrocodone 325 mg-5 mg oral tablet: Dose = 1 tab(s), Oral, q4h, PRN for pain, # 42 tab(s), 0 Refill(s), other reason (Rx), Pain levothyroxine 100 mcg (0.1 mg) oral tablet: Dose : 100 mcg = 1 tab(s), Oral, qAM, # 30 tab(s), 3 Refill(s), Pharmacy: [id number], 168, cm, 08/17/22 11:54:00 EDT, Height mupirocin 2% topical ointment: Apply 1 sarah, Topical, BID, Bilateral intranasal application twice daily x 5 days pre-surgery &/or as many days pre-surgery as possible., Apply to: nostril, each, # 22 gram(s), 0 Refill(s), Pharmacy: [id number], Ointment, 163.8, cm, 04/14/23... Documented Medications Documented Misc Medication: 1 cap(s), Oral, qAM, Black seed oil, 0 Refill(s), 116.6 Misc Medication: 1 cap(s), Oral, qAM, organic Iron Plus 22mg Vit b 12 200mcg folate 400mcg vitamin c 45mg, 0 Refill(s), 111 Misc Medication: 2 cap(s), Oral, qAM, Foli Growth, 0 Refill(s), 111 turmeric 500 mg oral capsule: 1 cap(s), Oral, qAM, 0 Refill(s), Medications (2) Active Scheduled: (1) lidocaine 1% (MPF) 2 mL vial pf 2.5 mg 0.25 mL, Intradermal, prep pharm Continuous: (1) Lactated Ringers 1,000 mL 1,000 mL, Intravenous, 20 mL/hr PRN: (0) Problem list: Medical Cholelithiasis / SNOMED CT 386957399 / Confirmed BMI 40.0-44.9, adult / SNOMED CT 4222423607 / Confirmed Chronic back pain greater than 3 months duration / SNOMED CT 239785689 / Confirmed Epigastric pain / SNOMED CT 307197658 / Confirmed History of depression / SNOMED CT 092807418 / Confirmed Hypothyroidism / SNOMED CT 75244730 / Confirmed Hair loss / SNOMED CT 163406250 / Confirmed Morbid obesity / SNOMED CT 369383252 / Confirmed Screening for lipid disorders / SNOMED CT 503886297 / Confirmed Annual physical exam / SNOMED CT 710194092 / Confirmed Dietary counseling / SNOMED CT 366378479 / Confirmed PCOS (polycystic ovarian syndrome) / SNOMED CT 936575245 / Confirmed Weight gain / SNOMED CT 89909068 / Confirmed, Active Problems (21) Annual physical exam Anxiety Back pain BMI 40.0-44.9, adult Bruises easily Childhood asthma Cholelithiasis Chronic back pain greater than 3 months duration COVID Dietary counseling Epigastric pain Hair loss History of depression Hypothyroidism Insulin resistance Marijuana smoker Morbid obesity PCOS (polycystic ovarian syndrome) Prediabetes Screening for lipid disorders Weight gain Histories Past Medical History: Resolved Depression (66864664): Resolved. Family History: Hypertension Mother DM - Diabetes mellitus Mother Father Procedure history: D&C - Dilatation and curettage (5263360675) in 2015 at 30 Years. Cyst (0920234830) in 2013 at 29 Years. Femur (536732456) in 1987 at 3 Years. Comments: 04/14/2023 8:51 EDT - Raul Zendejas RN left femur surgery Social History Social & Psychosocial Habits Alcohol 07/18/2019 Use: Never Substance Abuse 04/14/2023 Use: Current Type: Marijuana Comment: smokes every 2-3 days and sometimes edibles - 04/14/2023 08:53 - Raul Zendejas RN Tobacco 04/14/2023 Tobacco Use: Former smoker, quit more Stopped at age: 29 Years Home/Environment 04/14/[address]: Yes Lives In Multilevel home . Physical Examination Vital Signs(last 24 hrs) Last Charted Resp Rate 16 br/min (APRIL 25 06:10) DFS629 mmHg (APRIL 25 06:10) DBP71 mmHg (APRIL 25 06:10) Measurements from flowsheet : Measurements 04/25/2023 6:10 EDT Height 162.6 cm Height in inches 64 inch(es) Admission Weight 109.1 kg Weight Lbs 240 lb [place] Body Weight 54.74 kg Admission Body Mass Index 41.27 m2 General: Alert and oriented. Airway: Mallampati classification: II (soft palate, fauces, uvula visible). Dentition Evaluation: Intact. Respiratory: Lungs are clear to auscultation, Respirations are non-labored. Cardiovascular: Normal rate, Regular rhythm. Heart Sounds: Normal. Neurologic: Alert, Oriented. Review / Management Results review: No qualifying data available . Documentation reviewed: Current records. Assessment and Plan [place] [employer] (ASA) physical status classification: Class II. Anesthetic Preoperative Plan Premedication: intravenous. Anesthetic technique: General. Induction: intravenously. Maintenance airway: Oral endotracheal tube. Postoperative pain management: Per surgeon. Informed consent: signed by patient. Digitally Signed by KANA LINDSAY MD on 04/25/2023 07:18 AM [facility] 02-01-2023 Note ADDENDUM ADDENDUM: Please note that the report is in error, as the technologist worksheet was unclear. The technologist worksheet appears to read positive sonographic Aguirre sign. The technologist has clarified that the sonographic Aguirre sign is in fact negative. This would indicate that there is not evidence for acute cholecystitis. We apologize for the error. Interpreted by: Priscilla Childers MD Preliminary Report By: Pirscilla Childers MD Electronically signed By Priscilla Childers MD Dictated Date: 02/01/2023 1:05:15 PM Prelim Date: 02/01/2023 1:08:15 PM Sign Date: 02/01/2023 1:08:15 PM Ordering Provider: HUBERT BRAN ORIGINAL EXAMINATION: COMPLETE ABDOMINAL ULTRASOUND 02/01/2023 8:55 am COMPARISON: None. HISTORY: ORDERING SYSTEM PROVIDED HISTORY: Reason for Exam: epigastric pain FINDINGS: LIVER: The liver shows increased echogenicity most compatible with fatty infiltration. No focal liver lesion is evident. No intrahepatic biliary dilatation. BILIARY SYSTEM: The gallbladder is well distended. Cholelithiasis is present and there is probably also gallbladder sludge. The gallbladder wall measures 3 mm in thickness and this is normal. No pericholecystic fluid seen. Technologist note indicates that there is a positive sonographic Aguirre sign. Common bile duct is within normal limits measuring . KIDNEYS: The kidneys are unremarkable in appearance without evidence of hydronephrosis. PANCREAS: Visualized portions of the pancreas are unremarkable. SPLEEN: The spleen is unremarkable in appearance. Spleen is within normal limits in size. IVC: The IVC is patent. AORTA: Aorta is patent without aneurysm. OTHER: No evidence of ascites. IMPRESSION: 1. Fatty liver. 2. Cholelithiasis and gallbladder sludge. Positive sonographic Aguirre sign reported, compatible with acute cholecystitis. If imaging confirmation is clinically needed, then nuclear medicine hepatobiliary scanning is recommended. Interpreted by: Priscilla Childers MD Preliminary Report By: Priscilla Childers MD Electronically signed By Priscilla Childers MD Dictated Date: 02/01/2023 10:49:38 AM Prelim Date: 02/01/2023 10:57:19 AM Sign Date: 02/01/2023 10:57:19 AM Ordering Provider: HUBERT BRAN [facility] 02-01-2023 Note ADDENDUM ADDENDUM: Please note that the report is in error, as the technologist worksheet was unclear. The technologist worksheet appears to read positive sonographic Aguirre sign. The technologist has clarified that the sonographic Aguirre sign is in fact negative. This would indicate that there is not evidence for acute cholecystitis. We apologize for the error. Interpreted by: Priscilla Childers MD Preliminary Report By: Priscilla Childers MD Electronically signed By Priscilla Childers MD Dictated Date: 02/01/2023 1:05:15 PM Prelim Date: 02/01/2023 1:08:15 PM Sign Date: 02/01/2023 1:08:15 PM Ordering Provider: HUBERT BRAN ORIGINAL EXAMINATION: COMPLETE ABDOMINAL ULTRASOUND 02/01/2023 8:55 am COMPARISON: None. HISTORY: ORDERING SYSTEM PROVIDED HISTORY: Reason for Exam: epigastric pain FINDINGS: LIVER: The liver shows increased echogenicity most compatible with fatty infiltration. No focal liver lesion is evident. No intrahepatic biliary dilatation. BILIARY SYSTEM: The gallbladder is well distended. Cholelithiasis is present and there is probably also gallbladder sludge. The gallbladder wall measures 3 mm in thickness and this is normal. No pericholecystic fluid seen. Technologist note indicates that there is a positive sonographic Aguirre sign. Common bile duct is within normal limits measuring . KIDNEYS: The kidneys are unremarkable in appearance without evidence of hydronephrosis. PANCREAS: Visualized portions of the pancreas are unremarkable. SPLEEN: The spleen is unremarkable in appearance. Spleen is within normal limits in size. IVC: The IVC is patent. AORTA: Aorta is patent without aneurysm. OTHER: No evidence of ascites. IMPRESSION: 1. Fatty liver. 2. Cholelithiasis and gallbladder sludge. Positive sonographic Aguirre sign reported, compatible with acute cholecystitis. If imaging confirmation is clinically needed, then nuclear medicine hepatobiliary scanning is recommended. Interpreted by: Priscilla Childers MD Preliminary Report By: Priscilla Childers MD Electronically signed By Priscilla Childers MD Dictated Date: 02/01/2023 10:49:38 AM Prelim Date: 02/01/2023 10:57:19 AM Sign Date: 02/01/2023 10:57:19 AM Ordering Provider: HUBERT BRAN [facility] 12-28-2022 Evaluation + Plan note Future Scheduled TestsThyroid Stimulating Hormone 12/28/22 [facility] Evaluation + Plan note Future Appointments Appointment Date:08/23/2023 03:00:00 PM Scheduled Provider:HUBERT BRAN MD Location:[facility] Appointment Type:PC Wellness Annual [facility] Hospital course Narrative No data available for this section [facility] Hospital Discharge instructions No data available for this section [facility] Progress note No data available for this section [facility] Summary Purpose Family History No Family History Records Found Advance Directives No Advanced Directives Records Found Additional Source Comments Care Team (unrecognized sect ion and content) Care Team Personnel Name: HUBERT BRAN MD Position: P4 Physician - Primary Care Member Role: Primary Care Physician Address: Address: [address] [place] [address] Care Team Related Persons Name: PRISCILLA SWENSON Patient Care team informatio n (unrecognized section and content) Care Team Personnel Name: BROOK ENGLISH JR, MD Position: P4 Physician - General Surgery Member Role: Surgeon Address: Address: [address] [place] [address] Name: HUBERT BRAN MD Position: P4 Physician - Primary Care Member Role: Primary Care Physician Address: Address: [address] [place] [address] Care Team Related Persons Name: PRISCILLA SWENSON Care Team Personnel Name: BROOK ENGLISH JR, MD Position: P4 Physician - General Surgery Member Role: Surgeon Address: Address: [address] [place] [address] Name: HUBERT BRAN MD Position: P4 Physician - Primary Care Member Role: Primary Care Physician Address: Address: [address] [place] [address] Care Team Related Persons Name: PRISCILLA SWENSON Care Team Personnel Name: BROOK ENGLISH JR, MD Position: P4 Physician - General Surgery Member Role: Surgeon Address: Address: [address] [place] [address] Name: HUBERT BRAN MD Position: P4 Physician - Primary Care Member Role: Primary Care Physician Address: Address: [address] [place] [address] Care Team Related Persons Name: PRISCILLA SWENSON INFORMATION SOURCE (unrecogn ized section and content) FOR RECORDS PERTAINING TO PATIENTS WHO ARE OR HAVE BEEN ENROLLED IN A CHEMICAL DEPENDENCY/SUBSTANCEABUSE PROGRAM, SOME INFORMATION MAY BE OMITTED. This clinical summary was aggregated from multiple sources. Caution should be exercised in using it in the provision of clinical care. This summary normalizes information from multiple sources, and as a consequence, information in this document may materially change the coding, format and clinical context of patient data. In addition, data may be omitted in some cases. CLINICAL DECISIONS SHOULD BE BASED ON THE PRIMARY CLINICAL RECORDS. [facility]. provides no warranty or guarantee of the accuracy or completeness of information in this document.
--- NOTE | 2023-11-29 17:46 | CT_ITS ---
STUDY: CT ABDOMEN AND PELVIS WITHOUT CONTRAST REASON FOR EXAM: Female, 38 years old. abdominal pain/possible hernia -- Left mid abdomen RADIATION DOSAGE (If Supplied By Facility): CTDIvol = ( 22.44 ) mGy, DLP = ( 1192.50 ) mGycm TECHNIQUE: Transaxial images were obtained from the dome of the diaphragm to the symphysis pubis without oral contrast, and without intravenous contrast. Sagittal and coronal images were reconstructed. Individualized dose optimization techniques were used for this CT. COMPARISON: 12/13/2013 FINDINGS: The visualized lung bases are unremarkable. The visualized portions of the heart are within normal limits. There is decreased attenuation of the liver consistent with steatosis. There are surgical clips in the gallbladder fossa consistent with a prior cholecystectomy. Normal spleen. Normal pancreas. Normal bilateral adrenal glands. Normal right kidney. Normal left kidney. Normal visualized stomach. Normal small intestine. Normal colon. The appendix is visualized and appears normal. Normal abdominal aorta. Normal inferior vena cava. Normal retroperitoneum. Normal urinary bladder. 2.5 cm fat-containing mass of the left ovary consistent with an ovarian permanent. 8 cm hernia in the midline in the intra-abdominal wall just superior to the umbilicus containing fat. Normal osseous structures. CT/Abdomen/Pelvis without Cont IMPRESSION: 1. 8 cm hernia in the midline in the anterior abdominal wall just superior to the umbilicus containing fat. 2. Status post cholecystectomy with fatty infiltration liver. 3. 2.5 cm left ovarian dermoid. Electronically Signed: Sadiq Hutchinson MD at 22:16 EST ,
== END | disposition home or self-care (01) ==
LOC: CT 17:43
PROVIDERS: PCP Internal Medicine; Referring Provider Surgery; Visit Provider Surgery
DX: R10.9 Unspecified abdominal pain (principal); K43.9 Ventral hernia without obstruction or gangrene
CPT/HCPCS: 74176

== ENCOUNTER 2024-01-15 09:53 | Day surgery (SDC) | payer BC, SELFPAY ==
[2024-01-15] VITALS (8 sets, daily range): BP systolic 110–147; BP diastolic 61–84; PULSE 60–92; RESP 16–18; TEMP 36.3–36.6; O2SAT 93–100; BMI 44.1
--- NOTE | 2024-01-15 10:11 | HP.PCM.SX_ITS ---
HPI - General General Date of Service: 01/15/24 HPI Narrative DICK SWENSON, is a 38 F who presents for incarcerated incisional hernia repair with mesh. Patient previously had laparoscopic cholecystectomy last year and noticed a bulge in her mid abdomen, a little more off to the left. After her office visit in October we did get a CT abdomen pelvis did show incisional hernia about 2x3 cm with the bulge she felt coming from that area. Patient has had pain there denies any nausea and vomiting. Patient has been tolerating diet and having bowel function. office visit 11/24/23 HPI HPI: 38-year-old female presents due to possible ventral hernia. Patient states she had her gallbladder removed in March of this year at [place]. Patient states postoperatively she noticed pain just to the left of her midline supraumbilically but not directly at the incision sites. She also noticed some swelling in that area. Patient is here for evaluation. Patient is not had any further imaging done or CAT scans of this area. Patient states she is tolerating diet and having bowel function. [facility] Medical History (Updated 01/15/24 @ 10:[address] Jennifer Dsouza MD) Alcohol use Anxiety Asthma Fatty liver Former smoker Hx of fracture of femur Low iron Shortness of breath on exertion Thyroid disease Home Medications levothyroxine 125 mcg tablet 100 mcg PO DAILY 08/25/16 [History Last Taken 10/27/16 04:00 1] Ibuprofen [Motrin] 800 mg PO TID PRN PRN Pain #40 tabs 10/28/16 [Rx Last Taken Unknown] ferrous sulfate 325 mg (65 mg iron) tablet (Feosol) 325 mg PO DAILY 11/23/23 [History Last Taken Unknown] omega-3 fatty acids 1,000 mg capsule 2,500 mg PO DAILY 11/23/23 [History Last Taken Unknown] Allergy/AdvReac Type Severity Reaction Status Date / Time No Known Allergies Allergy Verified 01/15/24 10:08 Family History (Updated 11/23/23 @ 15:07 by Makeda Murguia) Mother Diabetes Heart disease Hypertension Thyroid disorder Asthma Father Diabetes Hypertension Surgical History History of cholecystectomy Hx of ovarian cystectomy Social History (Updated 11/23/23 @ 15:07 by Makeda Murguia) Smoking Status: Former smoker alcohol intake: never substance use type: does not use Physical Exam Const oriented x3 and no apparent distress Resp normal respiratory effort Cardio regular rate GI soft to palpation GI Narrative: Tender just to the left mid abdomen near bulge unable to feel hernia defect on exam as it is incarcerated- no PS Assessment & Plan Assessment/Plan (1) Incarcerated incisional hernia: PLAN: Plan Plan to do an incarcerated incisional hernia repair with mesh. Reviewed the procedure with the patient including the risks, including but not limited to infection, bleeding, injury to small bowel,etc and recurrence. Patient no further questions this time. Jennifer Dsouza M.D. Pager: [phone] [facility] [address] [place] [address], [address] [place] [address] Office: [phone]
[2024-01-15] MEDS: Lactated Ringers 1,000 ML 15 ML IV (10:33)
[2024-01-15 10:46] LABS: Hemoglobin 13.5 g/dL (12.0-15.0); Mean Corp Hgb Conc 32.9 g/dL (32-36); Mean Corpuscular Hgb 30.1 pg (27.0-32.0); Mean Corpuscular Volume 91.5 fL (81-99); Mean Platelet Vol. 9.5 fl (6.2-12.0); Platelet Count 339 K/mm3 (150-450); RBC Distribution Width CV 12.5 % (11.6-14.6); RBC Distribution Width SD 41.2 fl (35.1-43.9); Red Blood Count 4.48 M/mm3 (4.2-5.4); White Blood Count 8.4 K/mm3 (4.4-11.0)
[2024-01-15 10:53] LABS: Internal QC Validated? YES +Cl - CLEAR BKGD; Pregnancy, Urine Negative Negative
[2024-01-15 10:53] LABS: Prothrombin Time (Protime)PT. 12.9 SECONDS (11.7-14.9)
[2024-01-15 10:54] LABS: Record Kit Lot#,Urine Preg 718086
[2024-01-15 11:08] LABS: Thyroid Stim Hormone (TSH) 5.24 uIU/mL (0.358-3.74)
[2024-01-15] MEDS: Cefazolin 2 GM in 0.9% Normal Saline (100mL Bag) 100 ML IV (11:14)
--- NOTE | 2024-01-15 11:30 | HERN_PTH ---
PATHOLOGY RESULTS PATIENT: DICK SWENSON LOC: [facility] U#:[id number] AGE/SX: 38/F ROOM: RE01/15/[address]: Dr. Jennifer Dsouza MD : 1985 BED: DIS: 01/15/2024 SPEC #: [id number] RECD: 01/15/24 13:48 STATUS: HENRRY REElmira #: [id number] GABY: 01/15/24 11:[address]: Jennifer Dsouza DEPT: SURGICAL PATHOLOGY RECD BY: Cassidy Herr ENTERED: 01/15/24 13:56 SP TYPE: Hernia OTHR DR: Dr. Zulay Reynolds MD Tissues: HERNIA Procedures: Surgery Specimen Level II HEADER OPERATION: Hernia, open incisional repair with mesh PRE-OP DIAGNOSIS: Incarcerated incisional hernia TISSUE SUBMITTED: Hernia sac MICROSCOPIC DIAGNOSIS Hernia sac: Pieces of fibroadipose and fibroconnective tissue, consistent with hernia sac with focal fibrosis consistent with scar and reactive changes. FLEX:rohini 01/16/2024 MICROSCOPIC DESCRIPTION Slides are reviewed. GROSS DESCRIPTION Received in fixative is one container labeled with the patient's name and designated hernia sac. The specimen consists of two pieces of whitney-pink soft tissue measuring in aggregate 8.0 x 4.0 x 1.0 cm. No mass lesion is identified. Mobile Equipment Servicer sections are submitted in one cassette. / FLEX:rohini 01/15/2024 TC:5 CPT: 56627
--- NOTE | 2024-01-15 12:37 | OP.PCM_ITS ---
Report of Operation Date of Procedure: 01/15/24 Pre-Operative Diagnosis: Incarcerated incisional hernia Post-Operative Diagnosis: Same Surgery/Procedure Performed:: Incarcerated incisional hernia repair with mesh Surgeon: Jennifer Dsouza analog design engineer: Rosemary Alaniz Type of Anesthesia: General/Supplemental Anesthesiologist: Juan Chowdary Special Medications: Ancef 3 g IV x 1 Specimen's removed: Hernia sac Estimated Blood Loss (mL): 10 cc Description of Procedure: Patient was brought into the room placed supine on the operating table. Correct patient, procedure, site, positioning, special, was verified prior to procedure. General anesthesia was induced. The abdomen was prepped draped in usual sterile fashion. Midline incision was made above the hernia identified by ultrasound with 10 blade scalpel. This was deepened with electrocautery. The fascia around the hernia defect was cleared and the hernia defect measured 2.2 x [address] Omentum was reduced back in the abdomen. A medium Ventralex ST hernia patch 6.4 cm was used and secured laterally at the tails with 1 Prolene mattress sutures. Two 1 Prolene sutures were placed to close the fascia in a [id number] including the mesh inferiorly and superiorly. The wound was irrigated with sali ne. Hemostasis was assured. The incision was closed with 3-0 Vicryl subdermal interrupted sutures and the skin was closed with interrupted 4-0 Monocryl sutures. Steri-Strips and Tegaderm and OpSite were placed over the incision. Abdominal binder and pressure dressing replaced overlying the incision. 20 cc of 0.5% Marcaine was used for local anesthesia throughout the procedure. Patient was extubated. Patient tolerated procedure well and was taken to the postanesthesia care unit in stable condition. Grafts/Implants Used: Ventralex ST hernia patch 6.4 cm Lot [id number] Complications none
[2024-01-15] MEDS: Bupivacaine Mpf 0.5% 30 ML VIAL (12:41)
--- NOTE | 2024-01-15 12:42 | DCINST_ITS ---
Discharge Instructions Diet Discharge Diet: Light diet - advance as tolerated Activity Discharge Activity: May Not Drive (while taking narcotic pain medications.) May shower in (days): 1 Lifting Restrictions: no lifting >20 lbs x 2 wks, no strenuous exercise for 4 wks Dressing / Incision Call your doctor if your incision/area has: Continuous Slow Oozing, Sudden Increased Bleeding, Increased Pain/ Swelling, Increased Redness, Foul Smelling Discharge and Swelling at the incision site Call your doctor if you observe: Fever of 101 or Higher Remove Dressing in: 2 days Cleanse incision/area with: Soap & Water Additional Dressing/Incision Instructions:: Steri-Strips will fall off in 7 to 10 days, if they do not fall off okay to remove after 10 days. Follow Up Care Please Follow Up With: Jennifer Dsouza MD When: Call the office for a follow-up appointment 2 weeks; after 5 PM and on the weekends call [phone] with any concerns. Test Results: Test results from this visit will be discussed in further detail at your follow- up appointment, if applicable. Discharge Plan Admission Attending Provider: Jennifer Dsouza Primary Care Provider: Zulay Reynolds Discharge Orders/Prescriptions Prescriptions: New oxycodone-acetaminophen 5-325 mg tablet 1 - 2 tab PO Q6H PRN (Reason: pain) 3 Days Qty: 14 0RF Continued omega-3 fatty acids 1,000 mg capsule 2,500 mg PO DAILY ferrous sulfate [Feosol] 325 mg (65 mg iron) tablet 325 mg PO DAILY levothyroxine 125 MCG tablet 100 mcg PO DAILY Ibuprofen [Motrin] 800 MG tablet 800 mg PO TID PRN PRN (Reason: Pain) Qty: 40 0RF Referrals / Follow Up: Zulay Reynolds MD [Primary Care Provider] - Disposition Disposition (needs filled in before D/C Order can be placed): Home, Self Care
[2024-01-15] MEDS: oxyCODONE 5 MG Tablet PO (14:25)
[2024-01-15] MEDS: Acetaminophen 325 MG Tablet 650 MG PO (14:25)
== END 2024-01-15 15:23 | disposition home or self-care (01) ==
LOC: SDC 09:54 → AC 09:55
PROVIDERS: Anesthesiology; PCP Internal Medicine; Referring Provider Surgery; Visit Provider Surgery
PROC: (CPT 49594; principal; 2024-01-15 11:15)
DX: K43.0 Incisional hernia with obstruction, without gangrene (principal); Z87.891 Personal history of nicotine dependence; E07.9 Disorder of thyroid, unspecified; Z90.49 Acquired absence of other specified parts of digestive tract
CPT/HCPCS: 49594; 00832; 81025; 84443; 85027; 85610; 85730; 88302; C1781; J7120; J0330; J2405

== ENCOUNTER 2024-04-25 02:47 | Emergency (ER) | payer BC, SELFPAY ==
[2024-04-25 02:48] VITALS: BP 156/94; PULSE 114; RESP 18; TEMP 36.4; O2SAT 98; BMI 45.1
--- NOTE | 2024-04-25 03:28 | EKG12_ITS ---
Test Reason : DYSRHYTHMIA Blood Pressure : / mmHG Vent. Rate : 080 BPM Atrial Rate : 080 BPM P-R Int : 166 ms QRS Dur : 090 ms QT Int : 390 ms P-R-T Axes : 028 -13 006 degrees QTc Int : 449 ms Normal sinus rhythm Minimal voltage criteria for LVH, may be normal variant ( R in aVL ) Borderline ECG Confirmed by Eligio Orlando ([id number]), online editor DICK DELUNA ([id number]) on 04/29/2024 1:28:47 PM Referred By: Confirmed By:Eligio Orlando
--- NOTE | 2024-04-25 03:28 | RAD_ITS ---
STUDY: X-RAY CHEST REASON FOR EXAM: Female, 38 years old patient with palpitations. TECHNIQUE: PA and lateral views of the chest. COMPARISON: None. FINDINGS: Cardiac monitoring leads are present. The lungs are clear and under expanded. There is no demonstrated pleural abnormality. Normal size heart. Normal mediastinum and yasmani. Normal visualized pulmonary arteries. Normal visualized aortic arch and descending thoracic aorta. There are diffuse degenerative changes of the visualized thoracic spine. Normal visualized ribs, clavicles, and shoulders. There is no demonstrated abnormality of the visualized soft tissue structures of the upper abdomen. RAD/Chest PA and Lateral IMPRESSION: No radiographic evidence of acute cardiopulmonary disease. Electronically Signed: Jeanine De La Garza MD at 4:14 EDT ,
[2024-04-25 03:37] LABS: Absolute Lymphocyte Count 2.22 X10^3/uL (0.83-4.51); Absolute Neutrophil Count 11.3 X10^3/uL (2.0-7.7); Basophil# 0.05 X10^3/uL; Basophil% 0.3 % (0-1); Eosinophil# 0.22 X10^3/uL; Eosinophils% 1.5 % (0-5); Hematocrit 41.5 % (37-47); Hemoglobin 13.4 g/dL (12.0-15.0); Lymphocyte # 2.22 X10^3/ul (0.83-4.51); Lymphocyte % 15.5 % (19-41); Mean Corp Hgb Conc 32.3 g/dL (32-36); Mean Corpuscular Hgb 29.5 pg (27.0-32.0); Mean Corpuscular Volume 91.2 fL (81-99); Mean Platelet Vol. 9.9 fl (6.2-12.0); Monocyte# 0.54 X10^3/uL; Monocyte% 3.8 % (0-10); NRBC Flagged by Analyzer 0 % (0-5); Neutrophil # 11.25 X10^3/uL (2.7-7.7); Neutrophil % 78.6 % (47-70); Platelet Count 353 K/mm3 (150-450); RBC Distribution Width SD 42.7 fl (35.1-43.9); Red Blood Count 4.55 M/mm3 (4.2-5.4); White Blood Count 14.3 K/mm3 (4.4-11.0)
[2024-04-25 03:47] VITALS: BP 104/91; PULSE 94; RESP 15; O2SAT 95
[2024-04-25 03:50] LABS: D-Dimer Quantitative (DVT/PE) 0.44 FEU/ug/m (0.27-0.49)
[2024-04-25 04:00] VITALS: BP 113/98; PULSE 81; RESP 16; O2SAT 98
[2024-04-25 04:02] LABS: AST(SGOT) 23 U/L (15-37); Alanine Aminotransfer ALT/SGPT 40 U/L (13-56); Albumin, Serum 3.6 g/dL (3.2-5.0); Alkaline Phosphatase 107 U/L (45-117); Anion Gap 8 (5-15); BUN 13 mg/dL (7-18); BUN/Creat Ratio 16.4 RATIO (10-20); Calcium,Total 9.3 mg/dL (8.5-10.1); Chloride 105 mmol/L (98-107); Creatinine, Serum 0.79 mg/dL (0.55-1.02); EST Glomerular Filtration Rate 86 mL/min (>60); Est Glom Filt Rate - Afr Amer 104 mL/min (>60); Estimated Creatinine Clearance 123.91 ml/min; Globulin 4.9 g/dL (2.2-4.2); Glucose 115 mg/dL (74-106); Potassium 4.2 mmol/L (3.5-5.1); Protein, Total 8.5 g/dL (6.4-8.2); Sodium Level 137 mmol/L (136-145); Thyroid Stim Hormone (TSH) 5.25 uIU/mL (0.358-3.74); Troponin-I HS 12 pg/mL (3.0-54.0)
--- NOTE | 2024-04-25 04:45 | EDS_ITS ---
HPI History of Present Illness Chief Complaint: Palpitations Informant: patient and spouse/S.O. Narrative Narrative: Patient is a 38-year-old female with past medical history of hypothyroidism. She states that she has been intermittently having sensation of heart racing and palpitations. She reports she was seen by her family doctor and had outpatient blood work obtained which revealed that her TSH was slightly elevated but otherwise no clinically significant findings. She states is no family history of abnormal heart rhythm and she denies any history of travel surgery or DVT/PE. She denies any excessive stimulant use or illicit drug use. However because of persistent symptoms she presents for evaluation [facility] Medical History (Updated 04/25/24 @ 05:[address] Shane Stout, DO) Incarcerated incisional hernia Anxiety Alcohol use Thyroid disease Fatty liver Low iron Asthma Shortness of breath on exertion Former smoker Hx of fracture of femur Abdominal wall swelling Abdominal pain Ventral hernia Home Medications ?Medication ?Instructions ?Recorded ?Last Taken ?Type levothyroxine 125 mcg tablet 125 mcg PO DAILY 08/25/16 01/15/24 History Ibuprofen [Motrin] 800 mg PO TID PRN PRN Pain #40 tabs 10/28/16 01/14/24 Rx omega-3 fatty acids 1,000 mg 2,500 mg PO DAILY 11/23/23 01/14/24 History capsule multivitamin (Daily Multi-Vitamin 1 tab PO DAILY 04/25/24 Unknown History tablet) Allergy/AdvReac Type Severity Reaction Status Date / Time No Known Allergies Allergy Verified 04/25/24 02:53 Family History Mother Diabetes Heart disease Hypertension Thyroid disorder Asthma Father Diabetes Hypertension Surgical History History of incisional hernia repair Hx of ovarian cystectomy History of cholecystectomy Social History Smoking Status: Former smoker alcohol intake: never substance use type: does not use ROS ROS ED Constitutional Constitutional ED: Denies chills or fever(s) Eyes Eyes: Denies change in vision ENT ENT ED: Denies sore throat Cardiovascular Cardiovascular: Reports palpitations and racing heartbeat; Denies chest pain Respiratory/Chest Respiratory/Chest: Denies cough or dyspnea Gastrointestinal Gastrointestinal: Denies abdominal pain, diarrhea, nausea or vomiting Genitourinary Genitourinary ED: Denies dysuria Musculoskeletal Musculoskeletal: Denies myalgias Integumentary Denies rash Neurologic Neurologic: Denies headache(s) Psychiatric Psychiatric: Denies anxiety Hematologic/Lymphatic Hematologic/Lymphatic: Denies easy bleeding or easy bruising EXAM Physical Exam Const Vital Signs: 04/25/24 02:48 04/25/24 03:47 04/25/24 04:00 Temperature 97.6 F L Temperature Source Temporal Pulse Rate 114 H 94 81 Respiratory Rate 18 15 16 Blood Pressure 156/94 H 104/91 H 113/98 H Blood Pressure Mean 114 95 103 Pulse Ox 98 95 98 Oxygen Delivery Method Room Air Room Air 04/25/24 04:53 Temperature 97.9 F Temperature Source Pulse Rate 87 Respiratory Rate 18 Blood Pressure 116/74 Blood Pressure Mean 88 Pulse Ox 97 Oxygen Delivery Method Positive well nourished, well developed and obese General Appearance ED: well developed; Negative for pallor Nutritional Appearance: obese HEENT HEENT Narrative: Normocephalic atraumatic Eyes PERRL and EOMs intact bilaterally General Eye ED: Negative for pale conjunctiva or scleral icterus Neck supple Neck Narrative: No nuchal rigidity or meningeal signs noted Chest Wall palpation of chest normal Chest Narrative: No bony deformity or crepitance Resp normal respiratory effort and clear to auscultation bilaterally Resp Narrative: No nasal flaring retractions tachypnea or accessory muscle use Cardio regular rhythm Rate: tachycardic and other Other Details: Tachycardic rate with regular rhythm No murmurs rubs or gallops noted Radial and carotid pulses are equal and symmetric GI normal to inspection, nondistended, normoactive bowel sounds, non-tender, non- distended and no masses Auscultation: normoactive bowel sounds Palpation: soft Extremity normal to inspection Extremity Narrative: No asymmetric edema no pitting edema negative Homans' sign bilaterally Neuro oriented x3, CN's II-XII intact bilaterally and no sensory deficits noted Sensorium / Orientation: alert Motor Exam: strength 5/5 throughout Psych Mood & Affect: anxious Skin no rashes or lesions noted, no wounds and skin turgor normal General Skin Exam: Negative for jaundice or pallor MDM MDM MDM Narrative Medical decision making narrative: Patient arrived to the ER hypertensive and mildly tachycardic. She reports the symptoms have been intermittent over the past few weeks. She denied any illicit drug use or excessive stimulant use and states she has been taking her thyroid medication as directed. Differential diagnosis is for acute blood loss anemia versus acute kidney injury versus electrolyte abnormality versus cardiac arrhythmia versus DVT/PE versus anxiety. Basic blood work was obtained and shows stable H&H normal kidney function and no clinically significant electrolyte abnormality. Patient's D-dimer was also normal going against DVT/PE and her troponin is normal going against acute coronary syndrome. Patient was kept on the monitor and there was no abnormal cardiac rhythm noted. Without receiving any type of medication the patient's heart rate improved and her blood pressure stabilized as well. At this time with spontaneous improvement of symptoms and negative workup I do not feel there is need for further evaluation. Patient should check with her family doctor about referral to cardiology to discuss Holter monitor or further testing such as echo and/or tilt table testing if symptoms persist by this time with improvement of symptoms without treatment and negative workup she is otherwise safe for discharge History & Record Review Discussion w/independent historian: Patient and Significant other Lab Data Attestation: I reviewed the patient's lab results. Labs: Laboratory Results - last 24 hr 04/25/24 03:05 WBC 14.3 H RBC 4.55 Hgb 13.4 Hct 41.5 MCV 91.2 MCH 29.5 MCHC 32.3 RDW Std Deviation 42.7 RDW Coeff of Milli 13.0 Plt Count 353 MPV 9.9 Immature Gran % (Auto) 0.300 Neut % (Auto) 78.6 H Lymph % (Auto) 15.5 L Washburn % (Auto) 3.8 Eos % (Auto) 1.5 Baso % (Auto) 0.3 Absolute Neuts (auto) 11.3 H Absolute Lymphs (auto) 2.22 Nucleated RBC % 0 D-Dimer Quant (PE/DVT) 0.44 Sodium 137 Potassium 4.2 Chloride 105 Carbon Dioxide 24.0 Anion Gap 8 BUN 13 Creatinine 0.79 Estim Creat Clear Calc 123.91 Est GFR (MDRD) Af Amer 104 Est GFR (MDRD) Non-Af 86 BUN/Creatinine Ratio 16.4 Glucose 115 H Calcium 9.3 Magnesium 2.0 Total Bilirubin 0.20 Direct Bilirubin 0.10 AST 23 ALT 40 Alkaline Phosphatase 107 Troponin I High Sens 12 Total Protein 8.5 H Albumin 3.6 Globulin 4.9 H TSH 5.25 H Radiography Diagnostic Testing: Clinical Impression(s) from Imaging Studies Chest X-Ray 04/25/24 03:28 IMPRESSION: No radiographic evidence of acute cardiopulmonary disease. Electronically Signed: Jeanine De La Garza MD at 4:14 EDT Reading Location ID and State: [address] [place] [address] , Service support , 2 view chest x-ray as interpreted by the emergency medicine physician reveals no acute infiltrate pneumothorax pleural effusion or widening of the mediastinum Discharge Plan Triage Chief Complaint: Palpitations ED Provider: Shane Stout Dx/Rx/DC Orders Clinical Impression: Heart palpitations, Hypothyroidism, Morbid obesity Instructions: ED Palpitations, ED Tachycardia: PAT Prescriptions: No Action omega-3 fatty acids 1,000 mg capsule 2,500 mg PO DAILY levothyroxine 125 MCG tablet 125 mcg PO DAILY Ibuprofen [Motrin] 800 MG tablet 800 mg PO TID PRN PRN (Reason: Pain) Qty: 40 0RF multivitamin [Daily Multi-Vitamin] Tablet 1 tab PO DAILY Primary Care Provider: Zulay Reynolds Referrals: Zulay Reynolds MD [Primary Care Provider] - Activity Restrictions/Additional Instructions: Please follow-up with your family doctor for repeat evaluation and to discuss potential referral to cardiology to further assess your recurrent palpitations and tachycardia. Javan's workup however showed no sign of heart damage lung pathology abnormal heart rhythm or electrolyte abnormality. Continue all of your home medication as directed by your doctor and return to the ER should you have any further concerns Print Language: Bolivian Disposition Disposition: Home, Self Care Discharge Date/Time: 04/25/24 04:56
[2024-04-25 04:53] VITALS: BP 116/74; PULSE 87; RESP 18; TEMP 36.6; O2SAT 97
== END 2024-04-25 04:56 | disposition home or self-care (01) ==
PROVIDERS: Emergency Provider Emergency Medicine; PCP Internal Medicine; Visit Provider Emergency Medicine
DX: R00.2 Palpitations (principal); E66.01 Morbid (severe) obesity due to excess calories; Z87.891 Personal history of nicotine dependence; E03.9 Hypothyroidism, unspecified; Z79.899 Other long term (current) drug therapy; Z90.6 Acquired absence of other parts of urinary tract; Z90.49 Acquired absence of other specified parts of digestive tract
CPT/HCPCS: 71046; 80048; 80076; 83735; 84443; 84484; 85025; 85379; 93005; 99282; A4216

== ENCOUNTER → 2024-06-05 | Outpatient (CLI) | payer BC, SELFPAY ==
[2024-06-05 15:41] LABS: CRP 8.15 mg/L (0.0-3.0)
[2024-06-07 16:10] LABS: Endomysial Antibody IgA Positive (Negative); Immunoglobulin A 348 mg/dL (87-352); t-Transglutaminase IgA 27 U/mL (0-3)
== END | disposition home or self-care (01) ==
LOC: MTLAB 11:08
PROVIDERS: PCP Internal Medicine; Referring Provider Internal Medicine Gastroenterology; Visit Provider Internal Medicine Gastroenterology
DX: R10.9 Unspecified abdominal pain (principal); R19.7 Diarrhea, unspecified
CPT/HCPCS: 36415; 82784; 83516; 86140; 86255